=== PATIENT | female | born 1995 | race African-American/Black ===

== ENCOUNTER 2018-08-27 09:01 | Observation (INO) | payer MEDICAID, MEDICARE ==
[~2018-08-27] VITALS: Ht 157.5 cm; Wt 77.6 kg
[2018-08-27] MEDS ORDERED: LACTATED RINGERS 1,000 ML IV SCH (10:00)
[2018-08-27] MEDS ORDERED: PNV1TABL76 PO (10:01)
== END 2018-08-27 12:00 | disposition home or self-care (01) ==
LOC: 8 EST LDRP 09:01
PROVIDERS: ADMIT Obstetrics & Gynecology; ATTEND Obstetrics & Gynecology
DX: O46.93 Antepartum hemorrhage, unspecified, third trimester (principal); O26.893 Other specified pregnancy related conditions, third trimester; N89.8 Other specified noninflammatory disorders of vagina; O99.89 Other specified diseases and conditions complicating pregnancy, childbirth and the puerperium; M54.9 Dorsalgia, unspecified; Z3A.37 37 weeks gestation of pregnancy
CPT/HCPCS: 99281; G0378; 96360; 96361

== ENCOUNTER 2018-09-09 10:05 | Inpatient (IN) | payer MEDICARE ==
[~2018-09-09] VITALS: Ht 157.5 cm; Wt 78.0 kg
[~2018-09-09 10:05] MED LIST: PNV1TABL76 PO
[2018-09-09] MEDS ORDERED: FENTANYL CITRATE/PF 50MCG/ML 2ML VIAL ONE (10:49)
[2018-09-09] MEDS ORDERED: LACTATED RINGERS 1,000 ML IV SCH (10:58)
[2018-09-09] MEDS ORDERED: NALOXONE HCL 0.4 MG/ML 1ML VIAL IM PRN (11:00)
[2018-09-09] MEDS ORDERED: CARBOPROST TROMETHAMINE 250 MCG/ML AMPUL IM PRN (11:00)
[2018-09-09] MEDS ORDERED: ROPIVACAINE HCL/PF EPIDURAL 200 ML EPI SCH (11:00)
[2018-09-09] MEDS ORDERED: LIDOCAINE HCL 1% 20ML VIAL (Pyxis) INJ INFIL SCH (11:00)
[2018-09-09] MEDS ORDERED: MISOPROSTOL 100MCG TABLET VG SCH (11:00)
[2018-09-09] MEDS ORDERED: METHYLERGONOVINE MALEATE 0.2 MG/ML IM PRN (11:00)
[2018-09-09] MEDS ORDERED: BUTORPHANOL TARTRATE 2 MG/ML VIAL IV PRN (11:00)
[2018-09-09 11:26] LABS: BASOPHILS % 0.4 % (0.0-2.0); HEMATOCRIT. 38.3 % (36.0-48.0); HEMOGLOBIN. 12.6 g/dL (12.0-16.0); LYMPHOCYTES % 15.5 % (20.0-50.0); MEAN CORPUSCULAR HEMOGLOBIN 29.6 pg (28.0-32.0); MEAN CORPUSCULAR VOLUME 89.9 fL (81.0-99.0); MEAN PLATELET VOLUME 7.7 fl (7.4-10.4); MONOCYTES % 8.6 % (2.0-8.0); NEUTROPHILS % 73.5 % (40.0-76.0); PLATELET 239 x1000/uL (130-400); RED BLOOD CELL COUNT 4.26 mill/uL (4.2-5.4); RED CELL DISTRIBUTION WIDTH 13.9 % (11.6-14.6)
[2018-09-09 11:30] LABS: INR 0.9; PROTHROMBIN TIME 9.5 sec (9.6-11.0)
[2018-09-09 13:35] LABS: HEPATITIS B SURFACE ANTIGEN NEGATIVE
[2018-09-09] MEDS ORDERED: LIDOCAINE HCL 2%/EPINEPHRINE 1:100,000 20 ML VIAL INFIL ONE (14:19)
[2018-09-09] MEDS ORDERED: EPHEDRINE SULFATE 50MG/ML VIAL ONE (14:19)
[2018-09-09] MEDS: LACTATED RINGERS 1,000 ML IV SCH ×3 (14:30→19:06)
[2018-09-09] MEDS: DEXT 5%/LR + PITOCIN 20UNITS/L 1,000 ML IV SCH ×2 (16:29→21:33)
[2018-09-09] MEDS ORDERED: DEXT 5%/LR + PITOCIN 20UNITS/L 1,000 ML IV SCH (21:38)
[2018-09-09] MEDS ORDERED: GLYCERIN/WITCH HAZEL LEAF MEDICATED PAD TOP PRN (21:45)
[2018-09-09] MEDS ORDERED: LANOLIN OINT 7GM TUBE TOP PRN (21:45)
[2018-09-09] MEDS ORDERED: ACETAMINOPHEN WITH CODEINE 300/30MG TABLET PO PRN (21:45)
[2018-09-09] MEDS ORDERED: OXYCODONE HCL/ACETAMINOPHEN 5/325MG TABLET PO PRN ×2 (21:45)
[2018-09-09] MEDS ORDERED: BENZOCAINE/LANOLIN/ALOE VERA SPRAY TOP PRN (21:45)
[2018-09-09] MEDS ORDERED: IBUPROFEN 400MG TABLET PO PRN (21:45)
[2018-09-09] MEDS: IBUPROFEN 800MG TABLET PO PRN (22:00)
[2018-09-09 22:15] VITALS: BP 119/69
[2018-09-09 22:45] VITALS: BP 107/81
[2018-09-10 03:15] VITALS: BP 112/85
[2018-09-10 06:23] LABS: HEMATOCRIT 32.9 % (36.0-48.0)
[2018-09-10 08:00] VITALS: BP 106/67
[2018-09-10] MEDS: FERROUS SULFATE 325MG TABLET PO SCH ×3 (08:52→17:59)
[2018-09-10] MEDS: IBUPROFEN 800MG TABLET PO PRN ×2 (08:52→17:59)
[2018-09-10 16:00] VITALS: BP 105/64
[2018-09-10] MEDS ORDERED: TETANUS, DIPHTHERIA, PERTUSSIS VAC/PF 0.5ML (>7YR OLD) IM ONE (19:00)
[2018-09-10 20:00] VITALS: BP 104/69
[2018-09-11] VITALS: BP 107/70
[2018-09-11 07:39] VITALS: BP 98/56
[2018-09-11] MEDS: FERROUS SULFATE 325MG TABLET PO SCH (08:26)
== END 2018-09-11 12:51 | disposition home or self-care (01) | DRG 560 ==
LOC: OB TRIAGE 10:05 → OBSVTOIN 10:05 → 8EST NSY 10:40 → 8 EST LDRP 10:44 → 8EST 22:10
PROVIDERS: ADMIT Obstetrics & Gynecology; ATTEND Obstetrics & Gynecology
PROC: 10E0XZZ Delivery of Products of Conception, External Approach (ICD-10-PCS; principal; 2018-09-09)
PROC: 3E0R3BZ Introduction of Anesthetic Agent into Spinal Canal, Percutaneous Approach (ICD-10-PCS; 2018-09-09)
PROC: 00HU33Z Insertion of Infusion Device into Spinal Canal, Percutaneous Approach (ICD-10-PCS; 2018-09-09)
DX: O90.81 Anemia of the puerperium (principal); D62 Acute posthemorrhagic anemia; Z37.0 Single live birth; Z3A.39 39 weeks gestation of pregnancy; O71.82 Other specified trauma to perineum and vulva
CPT/HCPCS: 36415; 85014; 85018; 86592; 86703; 86762; 86850; 86900; 87340; 99281; J0595; J2590; J2795; J3010; J3490; J7120; A4315